=== PATIENT | female | born 2000 | race Caucasian/White ===

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

== ENCOUNTER 2019-05-16 18:52 | Emergency (ER) | payer OTHER ==
[~2019-05-16] VITALS: Ht 162.6 cm; Wt 97.5 kg
[~2019-05-16 18:52] MED LIST changes: +NORCO 5-325 TA1 EACH PO
[2019-05-16] MEDS ORDERED: TESSALON PERLE100 MG PO (20:59)
[2019-05-16] MEDS ORDERED: PREDNISONE 20 M20 MG PO (20:59)
[2019-05-16] MEDS ORDERED: ATIVAN0.5 M1 PO (20:59)
[2019-05-16] MEDS ORDERED: ZPAK PO (20:59)
[2019-05-16 23:00] VITALS: BP 114/80
== END 2019-05-16 23:08 | disposition home or self-care (01) ==
LOC: ER 18:52
DX: J20.9 Acute bronchitis, unspecified (principal); J45.909 Unspecified asthma, uncomplicated; F45.8 Other somatoform disorders; F41.9 Anxiety disorder, unspecified; F32.9 Major depressive disorder, single episode, unspecified; F90.9 Attention-deficit hyperactivity disorder, unspecified type

== ENCOUNTER 2020-10-12 15:59 | Emergency (ER) | payer OTHER ==
[~2020-10-12 15:59] MED LIST changes: +ATIVAN0.5 M1 PO; +TESSALON PERLE100 MG PO
[2020-10-12 17:01] LABS: URINE BILIRUBIN NEGATIVE (Negative); URINE BLOOD NEGATIVE (Negative); URINE CLARITY CLEAR; URINE COLOR YELLOW; URINE GLUCOSE-RANDOM* NEGATIVE (Negative); URINE KETONES 2+ (Negative); URINE LEUKOCYTES-REFLEX NEGATIVE (Negative); URINE NITRITE-REFLEX NEGATIVE (Negative); URINE PROTEIN (DIPSTICK) TRACE (Negative); URINE SPECIFIC GRAVITY >= 1.030 (1.005-1.035); URINE UROBILINOGEN 0.2 E.U./dl (0.2-1.0)
== END 2020-10-12 18:08 | disposition left against medical advice (07) ==
LOC: ER 15:59
PROVIDERS: Nurse Practitioner
DX: R11.2 Nausea with vomiting, unspecified (principal); Z53.21 Procedure and treatment not carried out due to patient leaving prior to being seen by health care provider